=== PATIENT | male | born 1990 | race African-American/Black ===

== ENCOUNTER 2017-09-14 14:27 | Emergency (ER) | payer SELFPAY ==
[2017-09-14] MEDS ORDERED: METRONIDAZOLE 500 MG TABLET PO ONE (14:50)
[2017-09-14] MEDS ORDERED: LIDOCAINE 1% INJ-PF (10 MG/ML) 30 ML SDV INFIL ONE (14:50)
[2017-09-14] MEDS ORDERED: AZITHROMYCIN 250 MG TABLET PO ONE (14:50)
[2017-09-14] MEDS ORDERED: CEFTRIAXONE INJ 250 MG VIAL IM ONE (14:50)
--- NOTE | 2017-09-14 15:03 | ER Document Report ---
ED GI/ - General Chief Complaint: Penile Discharge Stated Complaint: PENILE DISCHARGE, PAIN WITH URINATION Time Seen by Provider: 09/14/17 14:48 Mode of Arrival: Ambulatory Information source: Patient TRAVEL OUTSIDE OF THE [place] IN LAST 30 DAYS: No - HPI Patient complains to provider of: Dysuria, Other - penile d/c Onset: Yesterday Notes: 09/14/17 14:59 Patient is here with complaints of penile discharge and dysuria since yesterday. States that he recently had intercourse with a new partner and symptoms started shortly after that. He denies any abdominal pain. He denies any nausea, vomiting, diarrhea. No rash. No testicular pain or swelling. No chest pain or shortness of breath. No numbness, tingling, weakness. No other complaints at this time. Nothing makes his symptoms better or worse. Past Medical History - Social History Smoking Status: Unknown if Ever Smoked Family History: Reviewed & Not Pertinent Review of Systems - Review of Systems -: Yes All other systems reviewed and negative Physical Exam - Vital signs Vitals: Temp Pulse Resp BP Pulse Ox 98.2 F 63 12 127/58 H 99 09/14/17 14:41 09/14/17 14:41 09/14/17 14:41 09/14/17 14:41 09/14/17 14:41 - Notes Notes: GENERAL: alert, cooperative, nontoxic, no distress. HEAD: normocephalic, atraumatic EYES: conjunctiva pink without discharge, no external redness or swelling. EARS: no external swelling, no external redness NOSE: atraumatic, no external swelling MOUTH/THROAT: mucous membranes moist and pink, posterior pharynx without erythema, swelling, exudate. No trismus or drooling. NECK: soft, supple, full range of motion, no meningismus. CHEST: no distress, lungs clear and equal throughout. No wheezing, rales, rhonchi. CARDIAC: regular rate and rhythm, no murmur, normal capillary refill, normal pulses. No peripheral edema noted. ABDOMEN: Soft, nontender. BACK: full range of motion, no CVA tenderness. EXTREMITIES: full range of motion of all extremities. No redness, no swelling. NEURO: alert and oriented x 3, no focal deficits, full range of motion of all extremities. PYSCH: appropriate mood, affect. Patient is cooperative. SKIN: pink, warm, dry, no rash. : Uncircumcised penis. No rash. Testicles descended bilaterally with no tenderness, mass. Epididymis normal. Scrotal skin is normal. Small amount of penile discharge noted on exam. No tenderness. Course - Re-evaluation Re-evalutation: 09/14/17 15:00 Patient is nontoxic appearing with stable vitals. Here with complaints of dysuria and penile discharge after having sexual intercourse with a new partner. His exam is benign aside from some mild discharge. GC chlamydia culture has been sent and pending. Patient will be given Zithromax, Rocephin, 2 g of Flagyl. He was instructed to inform his partner of his symptoms. He was also instructed to follow-up with his primary care doctor or the health department for HIV and syphilis testing. He is instructed to always use condoms. Follow-up for worsening pain, fever, persistent vomiting, swelling, or for any further concerns. The patient is noted to have elevated blood pressure during today's emergency department visit. The patient was informed of this finding. The patient was instructed that this may be related to pre-hypertension and requires further evaluation with a primary care provider. The patient has no hypertensive symptoms at this time. The patient's emergency department workup and current diagnosis were explained to the patient and or family. Follow-up instructions were provided. Medications if prescribed were discussed. Instructions for when to return to the emergency department including specific worrisome symptoms were discussed with the patient and/or family. - Vital Signs Vital signs: Temp Pulse Resp BP Pulse Ox 98.2 F 63 12 127/58 H 99 09/14/17 14:41 09/14/17 14:41 09/14/17 14:41 09/14/17 14:41 09/14/17 14:41 Discharge - Discharge Clinical Impression: Penile discharge, Urethritis Condition: Stable Disposition: HOME, SELF-CARE Instructions: Gonorrhea ([facility]), Chlamydia ([facility]), Trichomonas Infection ([facility]) Additional Instructions: Always use condoms. Follow-up with health department or your family doctor for HIV and syphilis testing. Contact her partner to inform them of your symptoms so that they can be tested and treated as well. Follow-up for severe pain, persistent vomiting, high fever, or for any further concerns. Your blood pressure was elevated during today's visit. Have this rechecked with your doctor. Forms: Elevated Blood Pressure, Smoking Cessation Education Referrals: [facility] [Provider Group] - Follow up as needed
[2017-09-14 15:48] VITALS: BP 129/74
== END 2017-09-14 15:40 | disposition home or self-care (01) ==
LOC: ER 14:27
DX: N34.2 Other urethritis (principal); R36.9 Urethral discharge, unspecified; R30.0 Dysuria; R03.0 Elevated blood-pressure reading, without diagnosis of hypertension
CPT/HCPCS: 99283; 96372; J3490; J0696

== ENCOUNTER 2017-09-23 14:14 | Emergency (ER) | payer SELFPAY ==
[2017-09-23 14:26] VITALS: BP 132/70
[2017-09-23 15:09] LABS: APPEARANCE,URINE SLIGHTLY-CLOUDY; BILIRUBIN,URINE NEGATIVE (NEGATIVE); COLOR,URINE YELLOW; GLUCOSE, URINE NEGATIVE (NEGATIVE); KETONES,URINE NEGATIVE (NEGATIVE); LEUKOCYTE ESTERASE,URINE NEGATIVE (NEGATIVE); NITRITE,URINE NEGATIVE (NEGATIVE); PROTEIN,URINE NEGATIVE (NEGATIVE)
[2017-09-23] MEDS ORDERED: DOXYCYCLINE HYCLATE 100 MG TABLET PO ONE (16:01)
[2017-09-23 16:10] LABS: T.VAGINALIS (WET MOUNT) NO TRICHOMONAS SEEN; WBCS (WET MOUNT) NO WBCS SEEN; YEAST (WET MOUNT) NO YEAST SEEN
--- NOTE | 2017-09-23 16:15 | ER Document Report ---
HPI - HPI Pain Level: 4 Context: Patient is a 26-year-old male who returns emergency department for STD follow- up. Patient states that he was treated for chlamydia, gonorrhea and trichomonas about a week ago. Patient states that his discharge is improved but he still has right testicular pain on the backside of the testicle. He denies any pyuria, hematuria, rectal pain. States this pain has been present since his previous visit. Was told by sexual partner that she had tested positive for chlamydia. - CONSTITUTIONAL Constitutional: DENIES: Fever, Chills Past Medical History - Social History Smoking Status: Current Some Day Smoker Frequency of alcohol use: None Drug Abuse: None Family History: Reviewed & Not Pertinent Patient has suicidal ideation: No Patient has homicidal ideation: No Renal/ Medical History: Denies: Hx Peritoneal Dialysis Vertical Provider Document - CONSTITUTIONAL Agree With Documented VS: Yes Notes: PHYSICAL EXAM GENERAL: Alert, interacts well. Male : Normal inspection, no evidence of rash, no open wounds. No evidence of penile discharge. Testicles equal bilaterally without any significant edema. Cremasteric reflex intact bilaterally. Minimal tenderness palpation of the posterior aspect of the right testicle. EXTREMITIES: Moves all 4 extremities spontaneously. No edema, radial and dorsalis pedis pulses 2/4 bilaterally. No cyanosis. NEUROLOGICAL: Alert and oriented x4. Normal speech. PSYCH: Normal affect, normal mood. SKIN: Warm, dry, normal turgor. No rashes or lesions noted. - INFECTION CONTROL TRAVEL OUTSIDE OF THE [place] IN LAST 30 DAYS: No Course - Re-evaluation Re-evalutation: 09/23/17 17:16 Patient is a 26-year-old male is hemodynamically stable, no acute distress afebrile. Presentation is consistent with epididymitis. Patient is declining an ultrasound at this time. Sent wet mount, chlamydia and gonorrhea. Will treat for epididymitis. Discussed strict return precautions otherwise stable for discharge home. - Vital Signs Vital signs: Temp Pulse Resp BP Pulse Ox 97.8 F 64 16 132/70 H 100 09/23/17 14:25 09/23/17 14:25 09/23/17 14:25 09/23/17 14:25 09/23/17 14:25 - Laboratory Laboratory results interpreted by me: 09/23/17 14:53 Urine Urobilinogen 2.0 H Urine Ascorbic Acid 20 H Discharge - Discharge Clinical Impression: Acute epididymitis Condition: Good Disposition: HOME, SELF-CARE Instructions: Anti-Inflammatory Medication ([facility]), Doxycycline ([facility]), Epididymitis ([facility]) Prescriptions: Doxycycline Hyclate 100 mg PO BID #20 capsule Forms: Return to Work
[2017-09-23 17:52] LABS: CHLAM PCR NOT DETECTED (NOT DETECT); GON PCR NOT DETECTED (NOT DETECT)
== END 2017-09-23 16:34 | disposition home or self-care (01) ==
LOC: ER 14:14
DX: N45.1 Epididymitis (principal); F17.200 Nicotine dependence, unspecified, uncomplicated; Z20.2 Contact with and (suspected) exposure to infections with a predominantly sexual mode of transmission
CPT/HCPCS: 81001; 87210; 87491; 87591; 99283